=== PATIENT | male | born 1960 ===

== ENCOUNTER 2021-12-19 07:50 | Day surgery (SDC) | payer OTHER ==
[~2021-12-19] VITALS: Ht 162.6 cm; Wt 94.3 kg
[~2021-12-19 07:50] MED LIST: METFORMIN HCL500 M3 PO
[2021-12-19] MEDS ORDERED: PERCOCET 5-3251 EACH PO (14:27)
[2021-12-19] MEDS ORDERED: COLACE100 MG PO (14:28)
== END 2021-12-19 20:10 | disposition home or self-care (01) ==
LOC: CIR.AMB 07:50
PROVIDERS: ATTEND Surgery
DX: K62.1 Rectal polyp (principal); K64.4 Residual hemorrhoidal skin tags; E78.5 Hyperlipidemia, unspecified; E11.9 Type 2 diabetes mellitus without complications; Z20.822 Contact with and (suspected) exposure to COVID-19